=== PATIENT | female | born 1980 ===

== ENCOUNTER 2019-04-20 17:57 | Emergency (ER) | payer MEDICAID ==
[~2019-04-20] VITALS: Ht 170.2 cm; Wt 105.9 kg
[2019-04-20 18:58] VITALS: BP 113/67
[2019-04-20 19:16] LABS: CLARITY,URINE CLEAR (Clear); COLOR,URINE YELLOW (Yellow); GLUCOSE, URINE NEGATIVE (Neg); KETONES,URINE NEGATIVE (Neg); LEUKOCYTE ESTERASE ,URINE NEGATIVE (Neg); NITRITES, URINE NEGATIVE (Neg); OCCULT BLOOD,URINE LARGE (Neg); PROTEIN,URINE NEGATIVE (Neg); URINE HCG NEGATIVE (NEG)
[2019-04-20 19:17] LABS: UA COLLECTION TYPE CLN CATCH MIDSTREAM
[2019-04-20 19:25] LABS: RBC,URINE 0-2 /HPF (0-2); WBC,URINE 0-4 /HPF (0-4)
[2019-04-20 19:26] LABS: BACTERIA,URINE FEW /HPF (Neg); MUCUS STRANDS MODERATE /LPF (Neg); SQUAMOUS EPITHELIAL CELL,UR MODERATE /LPF (FEW)
[2019-04-20 19:31] LABS: BASOPHILS % (AUTO) 0.4 % (0-1); EOSINOPHILS # (AUTO) 0.2 X10'3 (0-0.9); EOSINOPHILS % (AUTO) 3.6 % (0-6); HEMATOCRIT 34.8 % (35.0-45.0); HEMOGLOBIN 11.3 g/dl (12.0-16.0); LYMPHOCYTES % (AUTO) 38.2 % (21-51); MEAN CORPUSCULAR HEMOGLOBIN 25.9 PG (27.0-31.0); MEAN CORPUSCULAR HGB CONC 32.5 g/dL (33.0-36.5); MEAN CORPUSCULAR VOLUME 79.6 FL (78-98); MEAN PLATELET VOLUME 9.2 FL (7.4-10.4); MONOCYTES # (AUTO) 0.5 X10'3 (0-0.9); MONOCYTES % (AUTO) 9.6 % (2-12); NEUTROPHILS # (AUTO) 2.6 X10'3 (1.8-7.7); NEUTROPHILS % (AUTO) 48.2 % (42-75); PLATELET COUNT 186 X10'3 (140-440); RED BLOOD COUNT 4.37 X10'6 (4.20-5.60); WHITE BLOOD COUNT 5.3 X10'3 (4.5-11.0)
[2019-04-20 19:39] LABS: ALANINE AMINOTRANSFERASE 20 U/L (12-78); ALBUMIN 3.2 G/DL (3.4-5.0); ALBUMIN/GLOBULIN RATIO 0.9 (1.1-1.5); ALKALINE PHOSPHATASE 62 IU/L (46-116); AMYLASE 47 U/L (25-115); ANION GAP 5 (8-16); ASPARTATE AMINO TRANSFERASE 10 U/L (10-37); BILIRUBIN,TOTAL 0.3 MG/DL (0.1-1.0); BLOOD UREA NITROGEN 12 MG/DL (7-18); BUN/CREATININE RATIO 15.8 (6.6-38.0); CHLORIDE 107 MMOL/L (99-107); CREATININE 0.76 MG/DL (0.40-0.90); GLUCOSE 88 MG/DL (70-104); LIPASE 195 U/L (73-393); POTASSIUM 3.8 MMOL/L (3.5-5.1); SODIUM 137 MMOL/L (135-145); TOTAL PROTEIN 6.8 G/DL (6.4-8.2); eGFR 86 ML/MIN
== END 2019-04-20 20:37 | disposition home or self-care (01) ==
LOC: ER 18:00
DX: R10.84 Generalized abdominal pain (principal); R11.10 Vomiting, unspecified; R19.7 Diarrhea, unspecified
CPT/HCPCS: 36415; 74176; 80053; 81001; 81025; 82150; 83690; 85025; 85610; 99284

== ENCOUNTER 2019-12-26 05:41 | Day surgery (SDC) | payer MEDICAID ==
[2019-12-23 10:33] LABS: CLARITY,URINE CLOUDY (Clear); COLOR,URINE YELLOW (Yellow); GLUCOSE, URINE NEGATIVE (Neg); KETONES,URINE NEGATIVE (Neg); LEUKOCYTE ESTERASE ,URINE NEGATIVE (Neg); NITRITES, URINE NEGATIVE (Neg); OCCULT BLOOD,URINE LARGE (Neg); PH,URINE 8.5 (4.8-8.0); PROTEIN,URINE NEGATIVE (Neg)
[2019-12-23 10:34] LABS: BASOPHILS % (AUTO) 0.3 % (0-1); EOSINOPHILS # (AUTO) 0.1 X10'3 (0-0.9); EOSINOPHILS % (AUTO) 1.4 % (0-6); LYMPHOCYTES % (AUTO) 41.9 % (21-51); MEAN CORPUSCULAR HEMOGLOBIN 22.7 PG (27.0-31.0); MEAN CORPUSCULAR HGB CONC 31.7 g/dL (33.0-36.5); MEAN CORPUSCULAR VOLUME 71.5 FL (78-98); MEAN PLATELET VOLUME 9.2 FL (7.4-10.4); MONOCYTES # (AUTO) 0.4 X10'3 (0-0.9); MONOCYTES % (AUTO) 7.7 % (2-12); NEUTROPHILS # (AUTO) 2.3 X10'3 (1.8-7.7); NEUTROPHILS % (AUTO) 48.7 % (42-75); PRE OP HEMATOCRIT 33.7 % (35.0-45.0); PRE OP PLATELET COUNT 257 X10'3 (140-440); RED BLOOD COUNT 4.72 X10'6 (4.20-5.60); RED CELL DISTRIBUTION WIDTH 14.7 % (11.5-14.5)
[2019-12-23 10:37] LABS: PRE OP HEMOGLOBIN 10.7 g/dL (12.0-16.0)
[2019-12-23 10:41] LABS: PRE OP PROTIME 10.5 SECONDS (9.0-12.0)
[2019-12-23 10:46] LABS: UA COLLECTION TYPE CLN CATCH MIDSTREAM
[2019-12-23 10:47] LABS: BACTERIA,URINE FEW /HPF (Neg); MUCUS STRANDS FEW /LPF (Neg); SQUAMOUS EPITHELIAL CELL,UR MODERATE /LPF (FEW); WBC,URINE 0-4 /HPF (0-4)
[2019-12-23 10:48] LABS: AMORPHOUS PHOSPHATES 2+
[2019-12-23 10:49] LABS: ALBUMIN 3.6 G/DL (3.4-5.0); ALBUMIN/GLOBULIN RATIO 0.9 (1.1-1.5); ALKALINE PHOSPHATASE 57 IU/L (46-116); BLOOD UREA NITROGEN 13 MG/DL (7-18); BUN/CREATININE RATIO 17.3 (6.6-38.0); CALCIUM 8.4 MG/DL (8.5-10.1); CHLORIDE 108 MMOL/L (99-107); CREATININE 0.75 MG/DL (0.40-0.90); PRE OP ALT 19 U/L (30-65); PRE OP ANION GAP 9 (8-16); PRE OP AST 13 U/L (10-37); PRE OP BILIRUB, TOTAL 0.5 MG/DL (0.0-1.0); PRE OP GLUCOSE 85 MG/DL (70-104); PRE OP POTASSIUM 3.8 MMOL/L (3.4-5.1); PRE OP SODIUM 141 MMOL/L (135-145); TOTAL PROTEIN 7.5 G/DL (6.4-8.2); eGFR 87 ML/MIN
[2019-12-23 10:51] LABS: HCG SERUM QL NEGATIVE
[~2019-12-26] VITALS: Ht 167.6 cm; Wt 105.8 kg
[~2019-12-26 05:41] MED LIST: OMEP40CA13 PO; ceFOXitin 2 GM ADDvantage bag 100 ML IV ONE; ceFOXitin 2 GM ADDvantage bag 50 ML IV ONE; famotidine 20mg tablet PO ONE; ringers solution, lacted 1,000 ML IV SCH
[2019-12-26 05:45] VITALS: BP 118/69
[2019-12-26] MEDS ORDERED: LIDOcaine 1% (10mg/ml) 2ml vial ONE (05:57)
[2019-12-26] MEDS ORDERED: morphine 10mg/ml inj. ONE (06:40)
[2019-12-26] MEDS ORDERED: LIDOcaine 1% 30ml preserv. free vial ONE (06:40)
[2019-12-26] MEDS ORDERED: BUPIVAcaine/PF 2.5 mg/ml (0.25%) 30ml vial ONE ×2 (06:41→08:07)
[2019-12-26] MEDS ORDERED: sevoflurane 250ml liquid IH ONE (07:12)
[2019-12-26] MEDS ORDERED: fentaNYL/PF 50MCG/1 ML 2ML syringe ONE (07:17)
[2019-12-26] MEDS ORDERED: midazolam 2 mg/2 ml injection ONE (07:17)
[2019-12-26] MEDS ORDERED: meperidine/PF 25mg/ml syringe IV PRN ×3 (07:20)
[2019-12-26] MEDS ORDERED: ringers solution, lacted 1,000 ML IV SCH (07:20)
[2019-12-26] MEDS ORDERED: proCHLORperazine 10 MG/2 ml inj IV PRN (07:20)
[2019-12-26] MEDS ORDERED: morphine 2 MG/ML inj. syringe IV PRN (07:20)
[2019-12-26] MEDS ORDERED: ondansetron/PF 4mg/2ml inj IV PRN (07:20)
[2019-12-26] MEDS ORDERED: morphine 4 MG/ML inj SYRINge IV PRN (07:20)
[2019-12-26] MEDS ORDERED: ondansetron/PF 4mg/2ml inj ONE (08:16)
[2019-12-26] MEDS ORDERED: propofol inj 20 ML IV ONE (08:17)
[2019-12-26] MEDS ORDERED: dexamethasone sod phosphate 4mg/ml inj. ONE (08:17)
[2019-12-26] MEDS ORDERED: rocuronium 10mg/ml inj IV ONE (08:17)
[2019-12-26] MEDS ORDERED: glycopyrrolate 0.2mg/ml inj ONE (08:27)
[2019-12-26] MEDS ORDERED: neostigmine methylsulfate 1 MG/ML 10ml vial ONE (08:27)
[2019-12-26 08:47] VITALS: BP 106/62
--- NOTE | 2019-12-26 08:47 | NUR ---
Received from OR via [facility] , accompanied by Anesthesiologist KAYLEEN and report given by Anesthesiolgist. PATIENT WITH 20G PIV IN LEFT UE RUNNING LR AT 100. MEDICATED FOR PAIN UPON ARRIVAL. 3 ABDOMINAL LAP BANDAIDS PRESENT WITH NO DRAINAGE EVIDENT. PATIENT MEDICATED FOR PAIN UPON ARRIVAL AND NOW ON BEDPAN. VSS. WILL CONTINUE TO TREAT AND MEDICATE. Addendum: 12/26/19 at 0900 by Dante Valdivia RN, RN Amended: Links added.
[2019-12-26] MEDS ORDERED: ketorolac trometh. 30mg/ml inj. IV ONE (08:50)
[2019-12-26 08:57] VITALS: BP 118/75
[2019-12-26 09:07] VITALS: BP 117/68
[2019-12-26 09:17] VITALS: BP 118/72
--- NOTE | 2019-12-26 09:27 | NUR ---
ALL DC CRITERIA HAS BEEN MET. IV TAKEN OUT WITHOUT COMPLICATIONS. ALL INSTRUCTIONS COVERED AND ALL QUESTIONS ANSWERED. DRESSINGS CDI. OUT VIA WHEELCHAIR TO PERSONAL VEHICLE WHERE PATIENT WAS SECURED IN AND DRIVEN HOME BY FAMILY. Addendum: 12/26/19 at 0936 by Dante Valdivia RN, RN Amended: Links added.
== END 2019-12-26 09:27 | disposition home or self-care (01) ==
LOC: PAS 05:41
PROVIDERS: ATTEND Obstetrics & Gynecology
DX: R10.2 Pelvic and perineal pain (principal); N80.3 Endometriosis of pelvic peritoneum; N80.8 Other endometriosis; N80.0 Endometriosis of uterus; N73.8 Other specified female pelvic inflammatory diseases; E66.9 Obesity, unspecified; Z68.37 Body mass index [BMI] 37.0-37.9, adult; Z98.890 Other specified postprocedural states; Z79.899 Other long term (current) drug therapy
CPT/HCPCS: 36415; 58662; 80053; 81001; 82948; 84703; 85025; 85610; 85730; 86885; 86900; 86901; 93005; C1758; J0694; J1100; J1885; J2001; J2175; J2250; J2270; J2405; J2704; J2710; J3010; J3490; J7120; A4618; A7000